=== PATIENT | female | born 1955 ===

== ENCOUNTER 2020-03-21 09:07 | Outpatient (CLI) | payer OTHER ==
--- NOTE | 2020-03-21 11:05 | XRay Report ---
LUMBAR SPINE 3 VIEWS INDICATION / CLINICAL INFORMATION: BACK PAIN. COMPARISON: None available. FINDINGS: Moderately advanced degenerative disc change at L4-5. Moderate facet hypertrophy from L4 to S1. No fr acture, subluxation or other acute abnormality. Signer Name: Jose Landers MD Signed: 03/21/2020 11:01 AM Workstation Name: [id number]
== END 2020-03-21 09:08 | disposition home or self-care (01) ==
LOC: XRAY 09:07
PROVIDERS: ATTEND Internal Medicine
DX: M47.816 Spondylosis without myelopathy or radiculopathy, lumbar region (principal)
CPT/HCPCS: 72100